=== PATIENT | male | born 1955 | race Caucasian/White ===

== ENCOUNTER 2019-02-19 08:58 | Emergency (ER) | payer OTHER, SELFPAY ==
[2019-02-19 08:59] VITALS: BP 109/78; PULSE 99; RESP 16; TEMP 36.4; O2SAT 99; BMI 30.2
--- NOTE | 2019-02-19 09:12 | RAD_ITS ---
STUDY: X-RAY - RIGHT KNEE REASON FOR EXAM: Male, 63 years old. TECHNIQUE: view(s) of the knee. COMPARISON: None. FINDINGS: There is total knee prosthesis which is unremarkable no complicating process identified but there is a obvious osteoporosis in the visualized bones. There is mild to joint effusion seen. There is minimal erosion corner of medial tibial plateau just below the metallic prosthesis. RAD/Knee 4 or More Views IMPRESSION: Total knee replacement with mild joint effusion and osteoporosis Electronically Signed: Luh Finch, at 9:50 EST Tel , Service support ,
--- NOTE | 2019-02-19 09:13 | ED.VISSUMM ---
- ER Visit Summary Date of Service: 02/19/19 Chief Complaint: Right knee pain and swelling History of Present Illness: The patient is a 63 M who presents with pain and swelling to his right knee that has been constant for the past 2 months. Patient states his pain is worse with ambulation. Patient denies any trauma or injury. Patient states he has been taking ibuprofen with no improvement. Patient describes his pain as aching. Patient states the pain has been constant. Patient has had a knee replacement of the right knee in [place]. Patient has not seen an orthopedic surgeon since he moved here. Physical Examination: Vital signs are stable. Patient is afebrile. Patient is in no acute distress. Musculoskeletal exam reveals a large effusion of the right knee. There is no erythema or warmth. There is good range of motion. Extensor mechanism is intact. There is no deformity noted. Pedal pulses are equal bilaterally. Sensation was intact light touch bilaterally in the lower extremities. Strength is 5/5 bilaterally. Test Results: X-rays of the right knee were obtained. There is no acute fracture. There is no loosening or displacement of the prosthesis. This was interpreted by myself and the radiologist. Emergency Department Course and Treatment: Patient was instructed to ice and elevate the right knee. Since the patient has had a total knee replacement, I am hesitant to aspirate his knee joint. Patient was given a prescription for Mobic. Patient was instructed to ice and elevate the right knee. Patient was instructed to follow-up with his primary care physician in 5 to 7 days. Patient was also given a referral to Dr. Gamino for orthopedic evaluation. Patient and family understood and was agreeable with the plan. All questions were answered. Disposition: Discharge home Impression: Right knee effusion This note was generated with [employer] dictation software. It may contain incorrect words, spelling, and punctuation that were not noted in review of the chart prior to signing ED Disposition - Plan for ED Patient: Disposition: Home or Assisted Living Diagnosis: Effusion, right knee Instructions: Knee Effusion Prescriptions: Meloxicam 15 mg PO DAILY PRN PRN #10 tab PRN Reason: Pain Prescription Printed Referrals: Otto Gamino, [STAFF PHYSICIAN] - 5-7 Days [facility] Doctor,Out of [Primary Care Provider] - 5-7 Days
== END 2019-02-19 10:26 | disposition home or self-care (01) ==
PROVIDERS: Emergency Provider Emergency Medicine
DX: M25.461 Effusion, right knee (principal); Z96.651 Presence of right artificial knee joint
CPT/HCPCS: 73564; 99282